=== PATIENT | male | born 1950 | race Two or more races ===

== ENCOUNTER 2023-02-09 21:41 | Emergency (ER) | payer OTHER ==
[~2023-02-09] VITALS: Ht 175.3 cm; Wt 66.7 kg
[2023-02-09] MEDS ORDERED: HUMULIN 70100 UNIT/2 SUBCUTANEO (21:57)
[2023-02-09] MEDS ORDERED: KAPSPARGO SPRIN25 MG PO (21:57)
[2023-02-09] MEDS ORDERED: HORIZANT300 MG PO (21:57)
[2023-02-09] MEDS ORDERED: SIMVASTATIN5 MG PO (21:57)
== END 2023-02-10 00:31 | disposition home or self-care (01) ==
LOC: ER 21:41
DX: T16.1XXA Foreign body in right ear, initial encounter (principal); W45.8XXA Other foreign body or object entering through skin, initial encounter; Y93.89 Activity, other specified; Y92.89 Other specified places as the place of occurrence of the external cause; Y99.9 Unspecified external cause status

== ENCOUNTER 2023-02-10 10:07 | Emergency (ER) | payer OTHER ==
[~2023-02-10] VITALS: Ht 175.3 cm; Wt 66.7 kg
[~2023-02-10 10:07] MED LIST: HORIZANT300 MG PO; HUMULIN 70100 UNIT/2 SUBCUTANEO; KAPSPARGO SPRIN25 MG PO; SIMVASTATIN5 MG PO
== END 2023-02-10 12:16 ==
LOC: ER 10:07
DX: T16.1XXA Foreign body in right ear, initial encounter (principal); E11.9 Type 2 diabetes mellitus without complications; Z79.4 Long term (current) use of insulin; I10 Essential (primary) hypertension; E78.49 Other hyperlipidemia; Z88.6 Allergy status to analgesic agent; Z91.013 Allergy to seafood; W45.8XXA Other foreign body or object entering through skin, initial encounter; Y93.89 Activity, other specified; Y92.89 Other specified places as the place of occurrence of the external cause